=== PATIENT | female | born 1990 | race African-American/Black ===

== ENCOUNTER 2016-10-19 03:43 | Emergency (ER) | payer SELFPAY ==
[2016-10-19 03:48] VITALS: BP 127/98
--- NOTE | 2016-10-19 04:02 | EDM.PDOC ---
ED HPI GENERAL MEDICAL PROBLEM - General Chief Complaint: Lower Extremity Injury/Pain Stated Complaint: [facility] Time Seen by Provider: 10/19/16 03:49 Source of Information: Reports: Patient, RN Notes Reviewed History Limitations: Reports: No Limitations - History of Present Illness INITIAL COMMENTS - FREE TEXT/NARRATIVE: The patient presents by EMS. The patient states that she woke with lateral left foot pain yesterday, 2016. She believes the lateral aspect of her left foot is swollen. No injury to her foot, however, she is on her feet at work. No prior injury. The patient does not have a PCP. Left Ankle Pain Score (Numeric/FACES): 7 - Related Data Allergies Allergy/AdvReac Type Severity Reaction Status Date / Time No Known Allergies Allergy Verified 10/19/16 03:48 Home Meds: Home Meds . [No Known Home Meds] 10/19/16 [History] Past Medical History Endocrine/Metabolic History: Reports: Obesity/BMI 30+ Social & Family History - Tobacco Use Smoking Status *Q: Never Smoker - Alcohol Use Alcohol Use History: Yes Alcohol Use Frequency: Socially - Recreational Drug Use Recreational Drug Use: No - Living Situation & Occupation Living situation: Reports: Single, with Significant Other (Boyfriend) Occupation: Employed ([employer]) Review of Systems - Review of Systems Review Of Systems: See Below Constitutional: Reports: No Symptoms Eyes: Reports: No Symptoms Ears: Reports: No Symptoms Nose: Reports: No Symptoms Mouth/Throat: Reports: No Symptoms Respiratory: Reports: No Symptoms Cardiovascular: Reports: No Symptoms GI/Abdominal: Reports: No Symptoms Genitourinary: Reports: No Symptoms Musculoskeletal: Reports: No Symptoms Skin: Reports: No Symptoms Neurological: Reports: No Symptoms Psychiatric: Reports: No Symptoms Trauma Exam - Physical Exam Exam: See Below Exam Limited By: No Limitations General Appearance: Reports: Alert, WD/WN, No Apparent Distress Extremities: No Evidence of Injury, Normal Range of Motion, No Pedal Edema, Other (No visible abnormality to the left foot, when compared to the right, such as swelling, erythema, or ecchymosis, however, the patient is indicating tenderness to palpation to the muscle on the proximal lateral aspect of her left foot. Neurovascular status of the left lower severity is intact.) Course - Vital Signs Last Recorded V/S: Last Vital Signs Temp 36.4 C 10/19/16 03:46 Pulse 77 10/19/16 03:46 Resp 18 10/19/16 03:46 BP 127/98 H 10/19/16 03:46 Pulse Ox 100 10/19/16 03:46 - Orders/Labs/Meds Orders: Active Orders 24 hr Category Date Time Status Foot Comp Min 3V Lt [CR] Stat Exams 10/19/16 03:58 Taken - Radiology Interpretation Free Text/Narrative:: 4-view radiographs of the left foot appear to be grossly unremarkable. No fracture or dislocation identified. Formal read per the Radiologist pending. - Re-Assessments/Exams Free Text/Narrative Re-Assessment/Exam: 10/19/16 04:40 X-ray results discussed with the patient. I suspect that the patient has strained her left foot. I'm recommending [id number] ibuprofen. Departure - Departure Time of Disposition: 04:41 Disposition: Home, Self-Care 01 Condition: good Clinical Impression: Strain of left foot - Discharge Information Referrals: Rosi Deutsch PA-C [Physician [facility]] - Forms: ED Department Discharge Additional Instructions: You were seen in the emergency room for her left foot pain. Workup in the ER in occluded x-rays of your foot, which did not show any abnormality. Your foot pain is MOST LIKELY due to strain. Take [id number] ibuprofen 2-3 tablets (400-600 mg) every 8 hours, with food, as needed for discomfort. Make sure that you have good quality shoes with proper support. Followup with Rosi Deutsch in the clinic as needed. If any other problems, please do not hesitate to return to the ER. - My Orders Last 24 Hours: My Active Orders 10/19/16 03:58 Foot Comp Min 3V Lt [CR] Stat - Assessment/Plan Last 24 Hours: My Active Orders 10/19/16 03:58 Foot Comp Min 3V Lt [CR] Stat
--- NOTE | 2016-10-19 11:41 | CR ---
Left foot: Four views of the left foot were obtained. Comparison: No previous exam. Joint spaces are maintained. No fracture, dislocation or other bony abnormality is appreciated. Impression: 1. No abnormality is appreciated on left foot study. Diagnostic code #1
== END 2016-10-19 05:26 | disposition home or self-care (01) ==
LOC: JD.ED 03:43
DX: S96.912A Strain of unspecified muscle and tendon at ankle and foot level, left foot, initial encounter (principal); E66.9 Obesity, unspecified; Z68.43 Body mass index [BMI] 50.0-59.9, adult; X58.XXXA Exposure to other specified factors, initial encounter; Y99.0 Civilian activity done for income or pay
CPT/HCPCS: 73630-26-LT; 73630-LT; 99282; 99284

== ENCOUNTER 2017-12-17 09:04 | Emergency (ER) | payer BC ==
[2017-12-17 09:16] VITALS: BP 126/69
--- NOTE | 2017-12-17 10:54 | EDM.PDOC ---
ED HPI GENERAL MEDICAL PROBLEM - General Chief Complaint: Gastrointestinal Problem Stated Complaint: DIARRHEA Time Seen by Provider: 12/17/17 09:14 Source of Information: Reports: Patient History Limitations: Reports: No Limitations - History of Present Illness INITIAL COMMENTS - FREE TEXT/NARRATIVE: The patient presents with diarrhea. This has been going on for over a month. She was seen by Myesha at [facility] and a complete work up was done to include stool studies. She came back positive for H-pylori and she is on antibiotics. She does not think she is getting any better. She has diarrhea multiple times per day. She had some burning epigastric pain yesterday. She cannot work because she has had multiple episodes of diarrhea. She denies every having this before. She still has her appendix and gallbladder. She has altered her diet and yesterday she ate bananas and toast. She is not noticing any food that is making things worse or better. She has no fever, chills, cough , chest pain or shortness of breath. She has no nausea or vomiting. Onset: Gradual Duration: Week(s): Location: Reports: Abdomen Quality: Reports: Burning Severity: Mild Improves with: Reports: None Worsens with: Reports: None Associated Symptoms: Denies: Nausea/Vomiting - Related Data Allergies Allergy/AdvReac Type Severity Reaction Status Date / Time No Known Allergies Allergy Verified 12/17/17 09:11 Home Meds: Home Meds Amoxicillin 500 mg PO BID 12/17/17 [History] Clarithromycin 500 mg PO BID 12/17/17 [History] Lansoprazole [Prevacid] 30 mg PO BID 12/17/17 [History] Past Medical History - Past Health History Medical/Surgical History: Denies Medical/Surgical History Gastrointestinal History: Reports: Chronic Diarrhea, Helicobacter Pylori Endocrine/Metabolic History: Reports: Obesity/BMI 30+ Social & Family History - Tobacco Use Smoking Status *Q: Never Smoker Second Hand Smoke Exposure: No - Caffeine Use Caffeine Use: Reports: Soda Other Caffeine Use: occassional use - Recreational Drug Use Recreational Drug Use: No - Living Situation & Occupation Living situation: Reports: Single, with Significant Other (Boyfriend) Occupation: Employed ([employer]) ED ROS GENERAL - Review of Systems Review Of Systems: See Below Constitutional: Reports: No Symptoms HEENT: Reports: No Symptoms Respiratory: Reports: No Symptoms Cardiovascular: Reports: No Symptoms Endocrine: Reports: No Symptoms GI/Abdominal: Reports: Abdominal Pain, Diarrhea. Denies: Nausea, Vomiting : Reports: No Symptoms Musculoskeletal: Reports: No Symptoms ED EXAM, GI/ABD - Physical Exam Exam: See Below Exam Limited By: No Limitations General Appearance: Alert, No Apparent Distress Ears: Normal External Exam Nose: Normal Inspection Head: Atraumatic, Normocephalic Neck: Normal Inspection Respiratory/Chest: No Respiratory Distress, Lungs Clear, Normal Breath Sounds Cardiovascular: Regular Rate, Rhythm, No Edema, No Murmur GI/Abdominal Exam: Soft, Non-Tender, No Organomegaly, No Mass Back Exam: Normal Inspection Extremities: Normal Inspection Course - Vital Signs Last Recorded V/S: Last Vital Signs Temp 98.1 F 12/17/17 09:12 Pulse 81 12/17/17 09:12 Resp 20 12/17/17 09:12 BP 126/69 12/17/17 09:12 Pulse Ox 99 12/17/17 09:12 - Orders/Labs/Meds Orders: Active Orders 24 hr Category Date Time Status CELIAC AB TTG DGP TIGA [REF] Stat Lab 12/17/17 09:58 Received UA W/MICROSCOPIC [URIN] Stat Lab 12/17/17 10:29 Ordered Labs: Laboratory Tests 12/17/17 12/17/17 12/17/17 Range/Units 09:58 09:58 10:29 WBC 6.85 (3.98-10.04) K/mm3 RBC 4.49 (3.98-5.22) M/mm3 Hgb 12.9 (11.2-15.7) gm/L Hct 38.3 (34.1-44.9) % MCV 85.3 (79.4-94.8) fl MCH 28.7 (25.6-32.2) pg MCHC 33.7 (32.2-35.5) g/dl RDW Std Deviation 41.7 (36.4-46.3) fL Plt Count 268 (182-369) K/mm3 MPV 11.3 (9.4-12.3) fl Neut % (Auto) 70.0 (34.0-71.1) % Lymph % (Auto) 20.3 (19.3-51.7) % [place] % (Auto) 8.8 (4.7-12.5) % Eos % (Auto) 0.4 L (0.7-5.8) Baso % (Auto) 0.4 (0.1-1.2) % Neut # (Auto) 4.79 (1.56-6.13) K/mm3 Lymph # (Auto) 1.39 (1.18-3.74) K/mm3 [place] # (Auto) 0.60 H (0.24-0.36) K/mm3 Eos # (Auto) 0.03 L (0.04-0.36) K/mm3 Baso # (Auto) 0.03 (0.01-0.08) K/mm3 Sodium 138 (136-145) mEq/L Potassium 3.8 (3.5-5.1) mEq/L Chloride 103 (98-107) mEq/L Carbon Dioxide 24 (21-32) mEq/L Anion Gap 14.8 (5-15) BUN 6 L (7-18) mg/dL Creatinine 0.9 (0.55-1.02) mg/dL Est Cr Clr Drug Dosing 78.36 mL/min Estimated GFR (MDRD) > 60 (>60) mL/min BUN/Creatinine Ratio 6.7 L (14-18) Glucose 107 H (74-106) mg/dL Calcium 9.0 (8.5-10.1) mg/dL Total Bilirubin 0.4 (0.2-1.0) mg/dL AST 16 (15-37) U/L ALT 27 (14-59) U/L Alkaline Phosphatase 60 (46-116) U/L Total Protein 8.0 (6.4-8.2) g/dl Albumin 3.8 (3.4-5.0) g/dl Globulin 4.2 gm/dL Albumin/Globulin Ratio 0.9 L (1-2) Lipase 140 (73-393) U/L Urine Color Yellow (Yellow) Urine Appearance Clear (Clear) Urine pH 6.5 (5.0-8.0) Ur Specific Ewing > or = 1.030 (1.005-1.030) Urine Protein Negative (Negative) Urine Glucose (UA) Negative (Negative) Urine Ketones Negative (Negative) Urine Occult Blood Trace-intact H (Negative) Urine Nitrite Negative (Negative) Urine Bilirubin Negative (Negative) Urine Urobilinogen 0.2 (0.2-1.0) Ur Leukocyte Esterase Negative (Negative) Urine RBC 0-5 (0-5) /hpf Urine WBC 0-5 (0-5) /hpf Ur Epithelial Cells 20-30 H (0-5) /hpf Urine Bacteria Few (FEW) /hpf Urine Mucus Not seen (FEW) /hpf - Re-Assessments/Exams Free Text/Narrative Re-Assessment/Exam: 12/17/17 10:54 I ordered labs and a UA. Her CBC and CMP look good. Her lipase is negative. Her UA shows no UTI. I have ordered a screening test for celiac. That needs to go off to our reference lab. 12/17/17 11:59 Her CBC and CMP and UA look good. I feel she needs to follow up with GI. Departure - Departure Time of Disposition: 12:00 Disposition: Home, Self-Care 01 Condition: Good Clinical Impression: Diarrhea - Discharge Information *PRESCRIPTION DRUG MONITORING PROGRAM REVIEWED*: Not Applicable *COPY OF PRESCRIPTION DRUG MONITORING REPORT IN PATIENT HAN: Not Applicable Referrals: Myesha Wright NP [Primary Care Provider] - 2 Days Forms: ED Department Discharge Additional Instructions: Drink plenty of fluids. Keep taking your medications. Take immodium as needed for diarrhea. Call Dr Barnes's office on Tuesday to get an appointment. Avoid dairy products. Avoid gluten for now. Rice is safe to eat but anything with wheat in it like toast and buns has gluten. Please return if you are worse. - My Orders Last 24 Hours: My Active Orders 12/17/17 09:58 CELIAC AB TTG DGP TIGA [REF] Stat 12/17/17 10:29 UA W/MICROSCOPIC [URIN] Stat - Assessment/Plan Last 24 Hours: My Active Orders 12/17/17 09:58 CELIAC AB TTG DGP TIGA [REF] Stat 12/17/17 10:29 UA W/MICROSCOPIC [URIN] Stat
== END 2017-12-17 12:24 | disposition home or self-care (01) ==
LOC: JD.ED 09:04
DX: R19.7 Diarrhea, unspecified (principal); Z79.899 Other long term (current) drug therapy
CPT/HCPCS: 36415; 80053; 81001; 82784; 83516; 83690; 85025; 99283; 99284